=== PATIENT | male | born 1945 | race Caucasian/White ===

== ENCOUNTER 2019-12-27 12:46 | Inpatient (IN) ==
[2019-12-27] MEDS ORDERED: VANCOMYCIN HCL IN DEXTROSE 5% IV SCH (15:45)
[2019-12-27] MEDS ORDERED: [UNRECOGNIZED DRUG - OTHER] IV SCH (15:45)
[2019-12-27] MEDS ORDERED: *HR* HYDROcodone/Acet 5/325 mg TABLET PO PRN (16:28)
[2019-12-27] MEDS: Insulin LISPRO 300 UNITS/3 ML VIAL SQ SCH (18:01)
[2019-12-27] MEDS: amLODIPine 5 MG TABLET PO SCH (22:27)
[2019-12-27] MEDS: rOPINIRole 1 MG TABLET PO SCH (22:27)
[2019-12-27] MEDS: Apixaban 5 MG TABLET PO SCH (22:27)
[2019-12-27] MEDS: Gabapentin 300 MG CAPSULE PO SCH (22:27)
[2019-12-27] MEDS: Gentamicin Oint 15 GM TUBE TP SCH (22:31)
[2019-12-28] MEDS: *HR* HYDROcodone/Acet 5/325 mg TABLET PO PRN (03:38)
[2019-12-28 06:39] LABS: Basophils # 0.1 K/mcL (0.0-0.2); Basophils % 0.8 %; Eosinophils # 0.4 K/mcL (0.0-0.6); Eosinophils % 4.8 %; Hematocrit 33.2 % (37.5-50.1); Hemoglobin 11.1 g/dL (12.9-16.9); Immature Granulocytes % 1.4 % (0-4); Lymphocytes # 1.8 K/mcL (0.6-4.6); Lymphocytes % 22.4 %; Mean Corpuscular HGB Conc 33.4 g/dL (31.6-35.5); Mean Corpuscular Hemoglobin 29.9 pg (28.0-33.3); Mean Corpuscular Volume 89.5 fL (83.0-100.0); Mean Platelet Volume 8.9 fL (9.4-12.4); Monocytes # 0.7 K/mcL (0.0-1.3); Monocytes % 8.7 %; Neutrophils # 4.9 K/mcL (1.6-8.9); Platelet Count 389 K/mcL (140-400); Red Blood Count 3.71 M/mcL (4.19-5.50); Red Cell Distribution Width 13.4 % (11.5-14.5); Segmented Neutrophils % 61.9 %
[2019-12-28 06:50] LABS: Alanine Aminotransferase 18 Units/L (7-52); Albumin 3.1 g/dL (3.5-5.7); Albumin/Globulin Ratio 0.9 (1.1-2.2); Alkaline Phosphatase 90 Units/L (34-104); Aspartate Amino Transferase 30 Units/L (13-39); BUN/Creatinine Ratio 15 (6-26); Bilirubin,Total 0.5 mg/dL (0.3-1.0); Blood Urea Nitrogen 19 mg/dL (8-23); Calcium 8.7 mg/dL (8.6-10.3); Carbon Dioxide 28 mEq/L (23-29); Chloride 105 mEq/L (98-107); Globulin 3.3 g/dL (2.4-3.5); Glucose 129 mg/dL (70-105); Magnesium 2.1 mg/dL (1.6-2.6); Osmolality,Calculated 292 (280-300); Potassium 4.2 mEq/L (3.5-5.1); Sodium 139 mEq/L (136-145); Total Protein 6.4 g/dL (6.4-8.9); eGFR For African Americans > 60 (> 60); eGFR For Non-African Americans 56 (> 60)
[2019-12-28] MEDS: Cholecalciferol (D-3) 1,000 UNIT (25MCG) TABLET PO SCH (08:27)
[2019-12-28] MEDS: Gabapentin 300 MG CAPSULE PO SCH ×3 (08:27→20:05)
[2019-12-28] MEDS: Loratadine 10 MG TABLET PO SCH (08:27)
[2019-12-28] MEDS: Apixaban 5 MG TABLET PO SCH ×2 (08:27→20:06)
[2019-12-28] MEDS: BuPROPion SR (12 HR) 100 MG TABLET PO SCH (08:28)
[2019-12-28] MEDS: Aspirin Enteric Coated 81 MG Tablet PO SCH (08:28)
[2019-12-28] MEDS: Insulin LISPRO 300 UNITS/3 ML VIAL SQ SCH ×3 (08:29→16:29)
[2019-12-28] MEDS: Gentamicin Oint 15 GM TUBE TP SCH ×2 (08:29→20:06)
[2019-12-28] MEDS: Insulin DETEMIR 100 UNIT/ML X5UNITS SQ SCH (08:29)
[2019-12-28] MEDS: polyethylene glycoL 3350 17 GM POWD.PACK PO PRN (11:27)
[2019-12-28] MEDS: rOPINIRole 1 MG TABLET PO SCH (20:05)
[2019-12-28] MEDS: amLODIPine 5 MG TABLET PO SCH (20:05)
[2019-12-29] MEDS: Gentamicin Oint 15 GM TUBE TP SCH ×3 (02:20→22:59)
[2019-12-29 05:11] LABS: Vancomycin,Trough 16 mcg/mL (5-10)
[2019-12-29] MEDS: Apixaban 5 MG TABLET PO SCH ×2 (08:00→20:40)
[2019-12-29] MEDS: Aspirin Enteric Coated 81 MG Tablet PO SCH (08:00)
[2019-12-29] MEDS: Cholecalciferol (D-3) 1,000 UNIT (25MCG) TABLET PO SCH (08:00)
[2019-12-29] MEDS: Gabapentin 300 MG CAPSULE PO SCH ×3 (08:00→20:40)
[2019-12-29] MEDS: BuPROPion SR (12 HR) 100 MG TABLET PO SCH (08:00)
[2019-12-29] MEDS: Loratadine 10 MG TABLET PO SCH (08:01)
[2019-12-29] MEDS: Insulin LISPRO 300 UNITS/3 ML VIAL SQ SCH ×3 (08:02→16:33)
[2019-12-29] MEDS: Insulin DETEMIR 100 UNIT/ML X5UNITS SQ SCH (08:03)
[2019-12-29] MEDS: polyethylene glycoL 3350 17 GM POWD.PACK PO PRN (08:11)
[2019-12-29 12:38] LABS: BUN/Creatinine Ratio 18 (6-26); Blood Urea Nitrogen 21 mg/dL (8-23); eGFR For African Americans > 60 (> 60); eGFR For Non-African Americans 59 (> 60)
[2019-12-29] MEDS: amLODIPine 5 MG TABLET PO SCH (20:40)
[2019-12-29] MEDS: rOPINIRole 1 MG TABLET PO SCH (20:40)
[2019-12-30 05:31] LABS: Hematocrit 32.4 % (37.5-50.1); Hemoglobin 10.6 g/dL (12.9-16.9); Mean Corpuscular HGB Conc 32.7 g/dL (31.6-35.5); Mean Corpuscular Hemoglobin 29.8 pg (28.0-33.3); Mean Platelet Volume 8.7 fL (9.4-12.4); Platelet Count 349 K/mcL (140-400); Red Blood Count 3.56 M/mcL (4.19-5.50); Red Cell Distribution Width 13.9 % (11.5-14.5)
[2019-12-30 05:45] LABS: BUN/Creatinine Ratio 17 (6-26); Blood Urea Nitrogen 19 mg/dL (8-23); Calcium 8.5 mg/dL (8.6-10.3); Carbon Dioxide 27 mEq/L (23-29); Chloride 108 mEq/L (98-107); Glucose 150 mg/dL (70-105); Magnesium 2.3 mg/dL (1.6-2.6); Osmolality,Calculated 295 (280-300); Potassium 4.2 mEq/L (3.5-5.1); Sodium 140 mEq/L (136-145); eGFR For African Americans > 60 (> 60); eGFR For Non-African Americans > 60 (> 60)
[2019-12-30] MEDS: Aspirin Enteric Coated 81 MG Tablet PO SCH (08:12)
[2019-12-30] MEDS: Cholecalciferol (D-3) 1,000 UNIT (25MCG) TABLET PO SCH (08:12)
[2019-12-30] MEDS: Insulin LISPRO 300 UNITS/3 ML VIAL SQ SCH ×3 (08:12→17:10)
[2019-12-30] MEDS: Loratadine 10 MG TABLET PO SCH (08:12)
[2019-12-30] MEDS: Apixaban 5 MG TABLET PO SCH ×2 (08:12→23:00)
[2019-12-30] MEDS: Gabapentin 300 MG CAPSULE PO SCH ×3 (08:12→23:01)
[2019-12-30] MEDS: BuPROPion SR (12 HR) 100 MG TABLET PO SCH (08:14)
[2019-12-30] MEDS: Insulin DETEMIR 100 UNIT/ML X5UNITS SQ SCH (08:36)
[2019-12-30] MEDS: Gentamicin Oint 15 GM TUBE TP SCH ×2 (11:12→23:00)
[2019-12-30] MEDS: *HR* HYDROcodone/Acet 5/325 mg TABLET PO PRN (23:00)
[2019-12-30] MEDS: amLODIPine 5 MG TABLET PO SCH (23:01)
[2019-12-30] MEDS: rOPINIRole 1 MG TABLET PO SCH (23:01)
[2019-12-31 06:08] LABS: BUN/Creatinine Ratio 19 (6-26); Blood Urea Nitrogen 22 mg/dL (8-23); Calcium 8.5 mg/dL (8.6-10.3); Carbon Dioxide 25 mEq/L (23-29); Chloride 110 mEq/L (98-107); Glucose 155 mg/dL (70-105); Osmolality,Calculated 296 (280-300); Potassium 4.3 mEq/L (3.5-5.1); Sodium 140 mEq/L (136-145); eGFR For African Americans > 60 (> 60); eGFR For Non-African Americans > 60 (> 60)
[2019-12-31] MEDS: Insulin LISPRO 300 UNITS/3 ML VIAL SQ SCH ×3 (07:50→17:01)
[2019-12-31] MEDS: Cholecalciferol (D-3) 1,000 UNIT (25MCG) TABLET PO SCH (07:51)
[2019-12-31] MEDS: BuPROPion SR (12 HR) 100 MG TABLET PO SCH (07:51)
[2019-12-31] MEDS: Loratadine 10 MG TABLET PO SCH (07:51)
[2019-12-31] MEDS: Aspirin Enteric Coated 81 MG Tablet PO SCH (07:51)
[2019-12-31] MEDS: Apixaban 5 MG TABLET PO SCH ×2 (07:52→20:59)
[2019-12-31] MEDS: Gentamicin Oint 15 GM TUBE TP SCH ×2 (07:52→21:02)
[2019-12-31] MEDS: Gabapentin 300 MG CAPSULE PO SCH ×3 (07:52→20:59)
[2019-12-31] MEDS: Insulin DETEMIR 100 UNIT/ML X5UNITS SQ SCH (08:10)
[2019-12-31] MEDS: amLODIPine 5 MG TABLET PO SCH (21:00)
[2019-12-31] MEDS: rOPINIRole 1 MG TABLET PO SCH (21:00)
[2020-01-01] MEDS: Aspirin Enteric Coated 81 MG Tablet PO SCH (08:59)
[2020-01-01] MEDS: BuPROPion SR (12 HR) 100 MG TABLET PO SCH (09:00)
[2020-01-01] MEDS: Cholecalciferol (D-3) 1,000 UNIT (25MCG) TABLET PO SCH (09:00)
[2020-01-01] MEDS: Loratadine 10 MG TABLET PO SCH (09:00)
[2020-01-01] MEDS: Apixaban 5 MG TABLET PO SCH ×2 (09:00→20:23)
[2020-01-01] MEDS: Gabapentin 300 MG CAPSULE PO SCH ×3 (09:00→20:23)
[2020-01-01] MEDS: Insulin DETEMIR 100 UNIT/ML X5UNITS SQ SCH ×2 (09:01→09:13)
[2020-01-01] MEDS: Insulin LISPRO 300 UNITS/3 ML VIAL SQ SCH ×3 (09:04→18:08)
[2020-01-01] MEDS: Gentamicin Oint 15 GM TUBE TP SCH (09:04)
[2020-01-01] MEDS: rOPINIRole 1 MG TABLET PO SCH (20:22)
[2020-01-01] MEDS: amLODIPine 5 MG TABLET PO SCH (20:23)
[2020-01-02] MEDS: Cholecalciferol (D-3) 1,000 UNIT (25MCG) TABLET PO SCH (09:31)
[2020-01-02] MEDS: Apixaban 5 MG TABLET PO SCH ×2 (09:31→20:38)
[2020-01-02] MEDS: Aspirin Enteric Coated 81 MG Tablet PO SCH (09:31)
[2020-01-02] MEDS: Insulin DETEMIR 100 UNIT/ML X5UNITS SQ SCH (09:31)
[2020-01-02] MEDS: BuPROPion SR (12 HR) 100 MG TABLET PO SCH (09:31)
[2020-01-02] MEDS: Loratadine 10 MG TABLET PO SCH (09:32)
[2020-01-02] MEDS: Gabapentin 300 MG CAPSULE PO SCH ×3 (09:32→20:38)
[2020-01-02 09:46] LABS: eGFR For African Americans > 60 (> 60); eGFR For Non-African Americans > 60 (> 60)
[2020-01-02] MEDS: Insulin LISPRO 300 UNITS/3 ML VIAL SQ SCH ×3 (11:59→16:55)
[2020-01-02] MEDS ORDERED: *HR* Alteplase (Cathflo) 2 MG VIAL IVP ONE (15:00)
[2020-01-02] MEDS: rOPINIRole 1 MG TABLET PO SCH (20:38)
[2020-01-02] MEDS: amLODIPine 5 MG TABLET PO SCH (20:38)
[2020-01-03] MEDS: Insulin LISPRO 300 UNITS/3 ML VIAL SQ SCH ×3 (08:07→16:58)
[2020-01-03] MEDS: Loratadine 10 MG TABLET PO SCH (08:08)
[2020-01-03] MEDS: Cholecalciferol (D-3) 1,000 UNIT (25MCG) TABLET PO SCH (08:08)
[2020-01-03] MEDS: BuPROPion SR (12 HR) 100 MG TABLET PO SCH (08:08)
[2020-01-03] MEDS: Apixaban 5 MG TABLET PO SCH ×2 (08:09→23:08)
[2020-01-03] MEDS: Gabapentin 300 MG CAPSULE PO SCH ×3 (08:09→23:08)
[2020-01-03] MEDS: Aspirin Enteric Coated 81 MG Tablet PO SCH (08:09)
[2020-01-03] MEDS: Insulin DETEMIR 100 UNIT/ML X5UNITS SQ SCH (09:46)
[2020-01-03] MEDS: rOPINIRole 1 MG TABLET PO SCH (23:08)
[2020-01-03] MEDS: amLODIPine 5 MG TABLET PO SCH (23:09)
[2020-01-04] MEDS: Cholecalciferol (D-3) 1,000 UNIT (25MCG) TABLET PO SCH (09:01)
[2020-01-04] MEDS: Aspirin Enteric Coated 81 MG Tablet PO SCH (09:01)
[2020-01-04] MEDS: BuPROPion SR (12 HR) 100 MG TABLET PO SCH (09:01)
[2020-01-04] MEDS: Insulin LISPRO 300 UNITS/3 ML VIAL SQ SCH ×3 (09:02→17:18)
[2020-01-04] MEDS: Loratadine 10 MG TABLET PO SCH (09:02)
[2020-01-04] MEDS: Apixaban 5 MG TABLET PO SCH ×2 (09:02→21:14)
[2020-01-04] MEDS: Gabapentin 300 MG CAPSULE PO SCH ×3 (09:02→21:15)
[2020-01-04] MEDS: Insulin DETEMIR 100 UNIT/ML X5UNITS SQ SCH (09:22)
[2020-01-04] MEDS: rOPINIRole 1 MG TABLET PO SCH (21:13)
[2020-01-04] MEDS: amLODIPine 5 MG TABLET PO SCH (21:14)
[2020-01-05] MEDS: Insulin LISPRO 300 UNITS/3 ML VIAL SQ SCH ×3 (07:54→16:02)
[2020-01-05] MEDS: Cholecalciferol (D-3) 1,000 UNIT (25MCG) TABLET PO SCH (08:20)
[2020-01-05] MEDS: Gabapentin 300 MG CAPSULE PO SCH ×3 (08:20→19:50)
[2020-01-05] MEDS: Aspirin Enteric Coated 81 MG Tablet PO SCH (08:20)
[2020-01-05] MEDS: BuPROPion SR (12 HR) 100 MG TABLET PO SCH (08:20)
[2020-01-05] MEDS: Loratadine 10 MG TABLET PO SCH (08:20)
[2020-01-05] MEDS: Apixaban 5 MG TABLET PO SCH ×2 (08:20→19:49)
[2020-01-05] MEDS: Insulin DETEMIR 100 UNIT/ML X5UNITS SQ SCH (08:21)
[2020-01-05] MEDS: rOPINIRole 1 MG TABLET PO SCH (19:49)
[2020-01-05] MEDS: amLODIPine 5 MG TABLET PO SCH (19:50)
[2020-01-06] MEDS: Cholecalciferol (D-3) 1,000 UNIT (25MCG) TABLET PO SCH (08:06)
[2020-01-06] MEDS: Loratadine 10 MG TABLET PO SCH (08:06)
[2020-01-06] MEDS: BuPROPion SR (12 HR) 100 MG TABLET PO SCH (08:06)
[2020-01-06] MEDS: Apixaban 5 MG TABLET PO SCH ×2 (08:06→19:34)
[2020-01-06] MEDS: Gabapentin 300 MG CAPSULE PO SCH ×3 (08:07→19:34)
[2020-01-06] MEDS: Insulin LISPRO 300 UNITS/3 ML VIAL SQ SCH ×3 (08:07→17:01)
[2020-01-06] MEDS: Aspirin Enteric Coated 81 MG Tablet PO SCH (08:07)
[2020-01-06] MEDS: Insulin DETEMIR 100 UNIT/ML X5UNITS SQ SCH (09:19)
[2020-01-06] MEDS: amLODIPine 5 MG TABLET PO SCH (19:35)
[2020-01-06] MEDS: rOPINIRole 1 MG TABLET PO SCH (19:36)
[2020-01-07 06:00] LABS: Mean Corpuscular HGB Conc 32.4 g/dL (31.6-35.5); Mean Corpuscular Hemoglobin 29.8 pg (28.0-33.3); Mean Corpuscular Volume 92.1 fL (83.0-100.0); Mean Platelet Volume 9.3 fL (9.4-12.4); Platelet Count 258 K/mcL (140-400); Red Blood Count 3.69 M/mcL (4.19-5.50); Red Cell Distribution Width 15.3 % (11.5-14.5); White Blood Count 6.3 K/mcL (4.3-11.1)
[2020-01-07 06:36] LABS: BUN/Creatinine Ratio 27 (6-26); Blood Urea Nitrogen 30 mg/dL (8-23); Calcium 8.6 mg/dL (8.6-10.3); Carbon Dioxide 26 mEq/L (23-29); Chloride 109 mEq/L (98-107); Glucose 183 mg/dL (70-105); Magnesium 2.1 mg/dL (1.6-2.6); Osmolality,Calculated 303 (280-300); Potassium 4.1 mEq/L (3.5-5.1); Sodium 141 mEq/L (136-145); eGFR For African Americans > 60 (> 60); eGFR For Non-African Americans > 60 (> 60)
[2020-01-07] MEDS ORDERED: Aminoglycoside Consult 1 EACH MC ONE (08:13)
[2020-01-07] MEDS: Cholecalciferol (D-3) 1,000 UNIT (25MCG) TABLET PO SCH (08:32)
[2020-01-07] MEDS: Apixaban 5 MG TABLET PO SCH ×2 (08:32→20:24)
[2020-01-07] MEDS: BuPROPion SR (12 HR) 100 MG TABLET PO SCH (08:32)
[2020-01-07] MEDS: Loratadine 10 MG TABLET PO SCH (08:32)
[2020-01-07] MEDS: Gabapentin 300 MG CAPSULE PO SCH ×3 (08:32→20:30)
[2020-01-07] MEDS: Aspirin Enteric Coated 81 MG Tablet PO SCH (08:33)
[2020-01-07] MEDS: Insulin LISPRO 300 UNITS/3 ML VIAL SQ SCH ×3 (08:33→17:08)
[2020-01-07] MEDS: Insulin DETEMIR 100 UNIT/ML X5UNITS SQ SCH ×2 (10:06→20:34)
[2020-01-07] MEDS: amLODIPine 5 MG TABLET PO SCH (20:29)
[2020-01-07] MEDS: rOPINIRole 1 MG TABLET PO SCH (20:30)
[2020-01-08 05:56] LABS: Bilirubin,Urine Negative (Negative); Blood,Urine Trace-intact (Negative); Clarity,Urine Slightly Cloudy (Clear); Glucose,Urine (UA) Normal (Normal); Ketones,Urine Negative (Negative); Leukocyte Esterase,Urine Moderate (Negative); Nitrite,Urine Negative (Negative); Protein,Urine 100 mg/dL (Neg-Trace); Specific Gravity,Urine 1.025 (1.010-1.025); Urobilinogen,Urine Normal (Normal)
[2020-01-08 06:08] LABS: Color,Urine Light-Yellow (Yellow)
[2020-01-08 06:09] LABS: Squamous Epithelial Cell,Urine Many per lpf (None-Few); WBC,Urine TNTC per hpf (0-3)
[2020-01-08 06:10] LABS: Bacteria,Urine Moderate per hpf (None-Few); Yeast,Urine Many per hpf (None Seen)
[2020-01-08] MEDS: Insulin LISPRO 300 UNITS/3 ML VIAL SQ SCH ×3 (08:31→16:28)
[2020-01-08] MEDS: Insulin DETEMIR 100 UNIT/ML X5UNITS SQ SCH ×2 (08:31→21:09)
[2020-01-08] MEDS: Cholecalciferol (D-3) 1,000 UNIT (25MCG) TABLET PO SCH (08:32)
[2020-01-08] MEDS: Loratadine 10 MG TABLET PO SCH (08:32)
[2020-01-08] MEDS: Gabapentin 300 MG CAPSULE PO SCH ×3 (08:32→21:10)
[2020-01-08] MEDS: Aspirin Enteric Coated 81 MG Tablet PO SCH (08:32)
[2020-01-08] MEDS: Apixaban 5 MG TABLET PO SCH ×2 (08:32→21:10)
[2020-01-08] MEDS: BuPROPion SR (12 HR) 100 MG TABLET PO SCH (08:32)
[2020-01-08] MEDS: Fluconazole 200 MG/100 ML 200 MG/100 ML BAG IVPB SCH (10:34)
[2020-01-08] MEDS: Doxycycline 100 MG in 0.9 % Sodium Chloride Mini Bag 100 ML IVPB SCH (17:32)
[2020-01-08] MEDS ORDERED: amLODIPine 5 MG TABLET PO SCH (21:00)
[2020-01-08] MEDS: rOPINIRole 1 MG TABLET PO SCH (21:10)
[2020-01-09] MEDS: Doxycycline 100 MG in 0.9 % Sodium Chloride Mini Bag 100 ML IVPB SCH (05:15)
[2020-01-09 07:50] VITALS: BP 142/77
[2020-01-09] MEDS: Insulin LISPRO 300 UNITS/3 ML VIAL SQ SCH ×2 (08:09→12:09)
[2020-01-09] MEDS: Cholecalciferol (D-3) 1,000 UNIT (25MCG) TABLET PO SCH (08:36)
[2020-01-09] MEDS: Gabapentin 300 MG CAPSULE PO SCH (08:36)
[2020-01-09] MEDS: Loratadine 10 MG TABLET PO SCH (08:36)
[2020-01-09] MEDS: BuPROPion SR (12 HR) 100 MG TABLET PO SCH (08:36)
[2020-01-09] MEDS: Apixaban 5 MG TABLET PO SCH (08:36)
[2020-01-09] MEDS: Aspirin Enteric Coated 81 MG Tablet PO SCH (08:36)
[2020-01-09] MEDS: Fluconazole 200 MG/100 ML 200 MG/100 ML BAG IVPB SCH (08:37)
[2020-01-09] MEDS ORDERED: Insulin DETEMIR 100 UNIT/ML per UNIT SQ SCH (09:00)
== END 2020-01-09 15:40 | disposition home health service (06) | DRG 593 ==
LOC: INPGRE 15:26
PROVIDERS: ADMIT Family Medicine; ATTEND Family Medicine